=== PATIENT | female | born 1995 | race African-American/Black ===

== ENCOUNTER 2017-12-14 08:58 | Inpatient (IN) ==
[2017-12-14] MEDS ORDERED: ONDANSETRON 4 MG/2 ML VIAL IV PRN ×3 (10:27→14:56)
[2017-12-14] MEDS ORDERED: MEPERIDINE 50 MG/1 ML VIAL IM PRN (10:27)
[2017-12-14] MEDS ORDERED: LACTATED RINGERS 1,000 ML IV ONE (10:27)
[2017-12-14] MEDS ORDERED: LACTATED RINGERS 500 ML IV PRN (10:27)
[2017-12-14] MEDS ORDERED: LACTATED RINGERS 1,000 ML IV SCH ×3 (10:30→15:00)
[2017-12-14] MEDS ORDERED: FAMOTIDINE 20 MG/2 ML VIAL IV ONE (10:47)
[2017-12-14] MEDS ORDERED: CITRIC ACID/SODIUM CITRATE 30 ML UDCUP PO ONE (10:47)
[2017-12-14 11:14] LABS: Basophils % 0.2 % (0.0-0.8); Eosinophils % 0.3 % (0.00-10.9); Hemoglobin 8.6 GM/DL (12.0-16.0); Immature Granulocytes % 0.8 %; Immature Granulocytes Absolute 0.07 #; Lymphocytes # 2.1 10*3/uL (1.4-4.0); Lymphocytes % 22.8 % (21.3-54.2); Mean Corpuscular HGB Conc 33.1 GM/DL (32-36); Mean Corpuscular Hemoglobin 25 PG (27-34); Mean Corpuscular Volume 76.9 FL (87-102); Mean Platelet Volume 11.2 FL (9.6-12.0); Monocytes # 0.6 10*3/uL (0.11-0.8); Monocytes % 5.9 % (1.7-12.7); Neutrophils # 6.5 10*3/uL (1.4-7.4); Platelet Count 205 T/CUMM (130-400); Red Blood Count 3.38 MC/CUMM (3.8-5.5); Red Cell Distribution Width 17.2 % (9.3-17.3); White Blood Count 9.3 T/CUMM (4-12)
[2017-12-14 11:24] LABS: INR 0.9; Partial Thromboplastin Time 28.7 SECS (0-40)
[2017-12-14 11:35] LABS: Alanine Aminotransferase 12 U/L (13-56); Albumin 2.3 G/DL (3.4-5.0); Alkaline Phosphatase 145 U/L (45-117); Aspartate Amino Transferase 7 U/L (0-37); Bilirubin,Total < 0.39 MG/DL (0.2-1.0); Blood Urea Nitrogen 6 MG/DL (7-18); Calcium 7.9 MG/DL (8.5-10.1); Glucose 86 MG/DL (74-106); Osmolality,Calculated 275.4 MOS/KG (273-304); Potassium 3.3 MMOL/L (3.5-5.1); Sodium 140 MMOL/L (136-145); Total Protein 6.6 G/DL (6.4-8.3)
[2017-12-14] MEDS ORDERED: OXYTOCIN 10 UNIT/ML VIAL ONE (11:54)
[2017-12-14] MEDS ORDERED: OXYTOCIN/LR 30 UNIT/1,000 ML BAG IV ONE ×2 (12:00→16:30)
[2017-12-14] MEDS ORDERED: CLINDAMYCIN INJ 50 ML IV ONE (12:00)
[2017-12-14] MEDS ORDERED: BUPIVACAINE SPINAL 0.75% 2 ML AMP SPINAL ONE (12:00)
[2017-12-14] MEDS ORDERED: CLINDAMYCIN INJ 900 MG in PREMIX 1 EACH IV ONE ×2 (12:10→16:00)
[2017-12-14 13:04] LABS: Cord Arterial Blood HCO3 21.9 MMOL/L
[2017-12-14 13:06] LABS: Cord Venous Blood HCO3 25.3 MMOL/L; Cord Venous Blood PCO2 48.7 MMHG; Cord Venous Blood PO2 38.9 MMHG
[2017-12-14 13:09] LABS: Apearance,Urine CLEAR (Clear); Bilirubin,Urine Negative (Negative); Blood, Urine Negative (Negative); Glucose,Urine (UA) Negative (Negative); Ketones,Urine Negative (Negative); Mucus,Urine Occasional /LPF (Occasional); Nitrite,Urine Negative (Negative); Protein,Urine Negative; RBC,Urine 1 /HPF (0-4); Squamous Epithelial Cell,Urine Occasional /HPF (0-10); Urine Color Yellow (Yellow); Urine Specific Gravity 1.015 (1.001-1.035)
[2017-12-14] MEDS ORDERED: fentaNYL 100 MCG/2 ML VIAL ONE (13:27)
[2017-12-14] MEDS ORDERED: MORPHINE 10 MG/10 ML VIAL ONE (13:28)
[2017-12-14] MEDS ORDERED: METOCLOPRAMIDE 10 MG/2 ML VIAL ONE (13:28)
[2017-12-14] MEDS ORDERED: PHENYLEPHRINE 1 MG/10 ML SYRINGE IV ONE (13:28)
[2017-12-14] MEDS ORDERED: OXYTOCIN/LR 20 UNIT/1,000 ML BAG IV ONE ×2 (14:31→14:45)
[2017-12-14] MEDS ORDERED: RHO(D) IMMUNE GLOBULIN 300 MCG SYRINGE IM ONE (14:45)
[2017-12-14] MEDS ORDERED: ACETAMINOPHEN 325 MG TABLET PO PRN (14:45)
[2017-12-14] MEDS ORDERED: diphenhydrAMINE 50 MG/1 ML VIAL IV PRN (14:56)
[2017-12-14] MEDS ORDERED: HYDROmorphone 2 MG/1 ML VIAL IV PRN (14:56)
[2017-12-14] MEDS ORDERED: hydrOXYzine HCL 25 MG/1 ML VIAL IM PRN (14:56)
[2017-12-14] MEDS ORDERED: SODIUM CHLORIDE 0.9% 1,000 ML IV SCH (15:00)
[2017-12-14] MEDS ORDERED: ceFAZolin 1,000 MG in SYRINGE 1 EACH IV SCH (15:00)
[2017-12-14] MEDS ORDERED: OXYTOCIN 10 UNIT/ML VIAL IM ONE (16:30)
[2017-12-14] MEDS: CLINDAMYCIN INJ 900 MG in PREMIX 1 EACH IV SCH (20:32)
[2017-12-14] MEDS: DOCUSATE SODIUM 100 MG CAPSULE PO SCH (20:44)
[2017-12-14 21:46] LABS: Basophils % 0.2 % (0.0-0.8); Eosinophils % 0.2 % (0.00-10.9); Hematocrit 27.5 VOL% (35.7-47.0); Hemoglobin 8.7 GM/DL (12.0-16.0); Immature Granulocytes % 0.8 %; Lymphocytes # 1.6 10*3/uL (1.4-4.0); Lymphocytes % 11.8 % (21.3-54.2); Mean Corpuscular HGB Conc 31.6 GM/DL (32-36); Mean Corpuscular Hemoglobin 25 PG (27-34); Mean Corpuscular Volume 79.5 FL (87-102); Mean Platelet Volume 11.5 FL (9.6-12.0); Monocytes # 0.8 10*3/uL (0.11-0.8); Monocytes % 5.9 % (1.7-12.7); Neutrophils # 10.6 10*3/uL (1.4-7.4); Neutrophils % 81.1 % (38.7-73.9); Platelet Count 205 T/CUMM (130-400); Red Blood Count 3.46 MC/CUMM (3.8-5.5); Red Cell Distribution Width 17.2 % (9.3-17.3); White Blood Count 13.1 T/CUMM (4-12)
[2017-12-15] MEDS: CLINDAMYCIN INJ 900 MG in PREMIX 1 EACH IV SCH (04:40)
[2017-12-15 07:01] LABS: Basophils % 0.2 % (0.0-0.8); Eosinophils % 0.2 % (0.00-10.9); Hematocrit 27.9 VOL% (35.7-47.0); Hemoglobin 9.1 GM/DL (12.0-16.0); Immature Granulocytes % 0.6 %; Immature Granulocytes Absolute 0.06 #; Lymphocytes # 1.4 10*3/uL (1.4-4.0); Mean Corpuscular HGB Conc 32.6 GM/DL (32-36); Mean Corpuscular Hemoglobin 25 PG (27-34); Mean Corpuscular Volume 76.6 FL (87-102); Mean Platelet Volume 11.7 FL (9.6-12.0); Monocytes # 0.8 10*3/uL (0.11-0.8); Monocytes % 7.3 % (1.7-12.7); Neutrophils # 8.6 10*3/uL (1.4-7.4); Neutrophils % 78.7 % (38.7-73.9); Platelet Count 234 T/CUMM (130-400); Red Blood Count 3.64 MC/CUMM (3.8-5.5); Red Cell Distribution Width 17.2 % (9.3-17.3); White Blood Count 10.9 T/CUMM (4-12)
[2017-12-15] MEDS: MAGNESIUM HYDROXIDE SUSP 30 ML UDCUP PO PRN ×2 (08:55→20:31)
[2017-12-15] MEDS: MULTIVITAMIN (PRENATAL) TABLET PO SCH (08:55)
[2017-12-15] MEDS: METOCLOPRAMIDE 10 MG/2 ML VIAL IV SCH ×2 (08:56→17:01)
[2017-12-15] MEDS: FERROUS SULFATE 325 MG TABLET PO SCH ×2 (08:56→20:31)
[2017-12-15] MEDS: DOCUSATE SODIUM 100 MG CAPSULE PO SCH ×2 (08:56→20:31)
[2017-12-15] MEDS: IBUPROFEN 800 MG TABLET PO PRN (09:00)
[2017-12-15] MEDS: SIMETHICONE CHEW 80 MG TABLET PO PRN (20:31)
[2017-12-16] MEDS: METOCLOPRAMIDE 10 MG/2 ML VIAL IV SCH ×2 (03:00→09:25)
[2017-12-16 07:41] VITALS: BP 140/77
[2017-12-16] MEDS: MAGNESIUM HYDROXIDE SUSP 30 ML UDCUP PO PRN (09:32)
[2017-12-16] MEDS: FERROUS SULFATE 325 MG TABLET PO SCH (09:32)
[2017-12-16] MEDS: SIMETHICONE CHEW 80 MG TABLET PO PRN (09:32)
[2017-12-16] MEDS: MULTIVITAMIN (PRENATAL) TABLET PO SCH (09:32)
[2017-12-16] MEDS: DOCUSATE SODIUM 100 MG CAPSULE PO SCH (09:32)
[2017-12-16] MEDS: IBUPROFEN 800 MG TABLET PO PRN (12:16)
== END 2017-12-16 13:35 | disposition home or self-care (01) | DRG 540 ==
LOC: N.LDOUT 08:58 → N.LD 08:59 → N.OB 16:22
PROVIDERS: ADMIT Obstetrics & Gynecology; ATTEND Obstetrics & Gynecology
PROC: LDCSECT (ICD-10-PCS; 2017-12-14 12:00)